=== PATIENT | female | born 1980 | race Caucasian/White ===

== ENCOUNTER 2018-02-22 14:24 | Emergency (ER) | payer OTHER ==
[~2018-02-22] VITALS: Ht 175.3 cm; Wt 68.0 kg
[2018-02-22 14:30] VITALS: BP 126/85
[2018-02-22] MEDS ORDERED: FLUC150T PO (14:52)
[2018-02-22] MEDS ORDERED: CEPH-264 PO (14:52)
--- NOTE | 2018-02-22 14:52 | PHYS DOC ---
Past History Past Medical History: Other Additional Past Medical Histor: history of SVT and complicated ablation with pacemaker placement Smoking: Non-smoker Alcohol Use: None Adult General Chief Complaint Chief Complaint: BREAST PROBLEM HPI HPI Patient is a 37 year old female who presents with complaining of mastitis. Patient is breast-feeding her 9 months old infant and states she was sick one week ago and didn't breast feed her child like her usual. Patient complaining of erythema and pain in medial side of left breast since yesterday that marked improvement after increasing breast-feeding. Patient states she has retained wires of pacemaker and was told needs to take antibiotic with infection at area of pacemaker wires. Patient states she had a temperature of 99 prior to arrival to ER and denies vomiting, chest pain, shortness of breath. Review of Systems Review of Systems Constitutional: Denies chills Eyes: Denies change in visual acuity, redness, or eye pain [] HENT: Denies nasal congestion or sore throat [] Respiratory: Denies cough or shortness of breath [] Cardiovascular: No additional information not addressed in HPI [] GI: Denies abdominal pain, nausea, vomiting, bloody stools or diarrhea [] : Denies dysuria or hematuria [] Musculoskeletal: Denies back pain or joint pain [] Integument: Denies rash or skin lesions [] Neurologic: Denies headache, focal weakness or sensory changes [] Endocrine: Denies polyuria or polydipsia [] All other systems were reviewed and found to be within normal limits, except as documented in this note. Allergies Allergies Allergies Coded Allergies Type Severity Reaction Last Updated Verified amoxicillin Allergy Intermediate 02/22/18 Yes Physical Exam Physical Exam Constitutional: Well developed, well nourished, no acute distress, non-toxic appearance, afebrile. [] HENT: Normocephalic, atraumatic Eyes: PERRLA, EOMI, conjunctiva normal, no discharge. [] Neck: Normal range of motion, no tenderness, supple, no stridor. [] Cardiovascular:Heart rate regular rhythm, no murmur [] Lungs & Thorax: Bilateral breath sounds clear to auscultation [left breast with erythema and marked tenderness in medial side of breath without nipple pus drainage, no axillary lymph, no erythema or tenderness in pacemaker site Skin: Warm, dry, no erythema, no rash. [] Back: No tenderness, no CVA tenderness. [] Extremities: No tenderness, no cyanosis, no clubbing, ROM intact, no edema. [] Neurologic: Alert and oriented X 3, normal motor function, normal sensory function, no focal deficits noted. [] Psychologic: Affect normal, judgement normal, mood normal. [] EKG EKG [] Radiology/Procedures Radiology/Procedures [] Course & Med Decision Making Course & Med Decision Making Evaluation of patient in ER showed 37-year-old female patient with history of breast feeding with left breast marked mastitis without sign of cellulitis or abscess. Patient requested Diflucan for prevention of yeast infection while taking antibiotics. Patient was instructed to continue breast-feeding her infant and return to ER or her primary care physician if not getting better after 48 hours of antibiotic. Dragon Disclaimer Dragon Disclaimer This electronic medical record was generated, in whole or in part, using a voice recognition dictation system. Departure Departure: Impression: Primary Impression: Acute mastitis of left breast Disposition: HOME, SELF-CARE (at 1450) Condition: STABLE Referrals: PCP,NO (PCP) Patient Instructions: , Mastitis Additional Instructions: Apply moist heat pad on the affected area Follow-up with your primary care physician in 3-5 days Return to ER if not getting better Scripts Fluconazole (DIFLUCAN) 150 Mg Tablet 1 TAB PO WEEKLY PRN for Yeast infection, #3 TAB 1 Refill Prov: TAWANNA MANNING MD 02/22/18 Cephalexin (KEFLEX) 500 Mg Capsule 2 CAP PO Q12HR for infection, #28 CAP Prov: TAWANNA MANNING MD 02/22/18 TAWANNA MANNING MD Feb 22, 2018 14:52
== END 2018-02-22 15:07 | disposition home or self-care (01) ==
LOC: ER 14:24
DX: N61.0 Mastitis without abscess (principal); Z88.1 Allergy status to other antibiotic agents
CPT/HCPCS: 99283